=== PATIENT | female | born 1950 | race Asian ===

== ENCOUNTER → 2017-07-17 | Outpatient (CLI) | payer OTHER ==
[~2017-07-17] MED LIST: AMLO-511 PO; ASPI81 PO; CARV12 PO; CHOL200018 PO; HYDR25TA84 PO; INSU3INS3 SQ; LOVA20 PO; SITA25 PO
== END | disposition home or self-care (01) ==
LOC: RADPV 09:56
PROVIDERS: ATTEND Internal Medicine Nephrology
DX: Z01.89 Encounter for other specified special examinations (principal); I70.0 Atherosclerosis of aorta
CPT/HCPCS: 71020